=== PATIENT | male | born 1970 | race African-American/Black ===

== ENCOUNTER 2021-08-01 06:43 | Emergency (ER) | payer OTHER ==
[2021-08-01 06:47] VITALS: BP 130/76; PULSE 69; TEMP 98.3; BMI 28.8
[2021-08-01] MEDS ORDERED: LIDOCAINE 5% TOPICAL PATCH TP ONE (07:39)
[2021-08-01] MEDS ORDERED: IBUPROFEN 400 MG TABLET (FP) PO ONE ×2 (07:39→08:04)
[2021-08-01] MEDS ORDERED: LIDOCAINE 5% TOPICAL PATCH ONE (08:04)
[2021-08-01] MEDS ORDERED: LIDOCAINE PATCH REMOVAL MC SCH (22:00)
== END 2021-08-01 08:50 | disposition home or self-care (01) ==
LOC: JERFT 06:43
DX: M25.522 Pain in left elbow (principal)
CPT/HCPCS: 73070-TC-LT-FY; 99283-25